=== PATIENT | female | born 1975 | race Caucasian/White ===

== ENCOUNTER 2018-03-13 17:14 | Emergency (ER) | payer OTHER ==
[~2018-03-13] VITALS: Ht 160 cm; Wt 111.6 kg
[2018-03-13] MEDS ORDERED: COZAAR 50 MG TA50 M2 PO (17:32)
[2018-03-13] MEDS ORDERED: ZOLOFT50 M1 PO (17:32)
[2018-03-13] MEDS ORDERED: METFORMIN HCL500 MG PO (17:32)
[2018-03-13] MEDS ORDERED: HYDROCHLOROTH12.5 M1 PO (17:32)
[2018-03-13 17:40] LABS: HEMATOCRIT 41.1 % (37.0-47.0); HEMOGLOBIN 14.1 gm/dL (12.0-15.0); MCH 28.8 pg (26.0-34.0); MCHC 34.4 g/dL (28.0-37.0); MCV 83.9 fL (80.0-100.0); MPV 8.1 fl. (7.2-11.1); NUCLEATED RBCS 0 /100WBC; PLATELET COUNT* 253 thou/uL (150-400); RDW-CV 14.3 % (10.5-14.5); WBC 14.3 thou/uL (4.0-11.0)
[2018-03-13 17:48] LABS: ANION GAP 11 mmol/L (7-16); BUN 9 mg/dL (7-18); CALCIUM 9.4 mg/dL (8.5-10.1); CHLORIDE 97 mmol/L (98-107); CO2 28 mmol/L (21-32); CREATININE 0.7 mg/dL (0.6-1.3); GLUCOSE 327 mg/dL (70-99); POTASSIUM 3.7 mmol/L (3.5-5.1); SODIUM 136 mmol/L (136-145)
[2018-03-13 17:55] LABS: ALBUMIN 3.7 g/dL (3.4-5.0); ALKALINE PHOSPHATASE 112 U/L (46-116); LIPASE 116 U/L (73-393); SGOT 63 U/L (15-37); SGPT 82 U/L (30-65); TOTAL BILIRUBIN 0.8 mg/dL (<0.1-1.0); TOTAL PROTEIN 7.5 g/dL (6.4-8.2); TROPONIN-I LEVEL <0.06 ng/mL (<0.06)
[2018-03-13 18:11] LABS: ABSOLUTE BASOPHILS 0.1 thou/uL (0.0-0.2); ABSOLUTE EOSINOPHILS 0.4 thou/uL (0.0-0.7); ABSOLUTE LYMPHOCYTES 3.9 thou/uL (0.8-5.3); ABSOLUTE MONOCYTES 0.9 thou/uL (0.0-1.2); ATYPICAL LYMPHS 6 %; PLATELET ESTIMATE ADEQUATE
[2018-03-13] MEDS ORDERED: GLUCOTROL5 MG PO (18:30)
[2018-03-13 18:42] LABS: URINE BILIRUBIN NEGATIVE (Negative); URINE BLOOD NEGATIVE (Negative); URINE CLARITY CLEAR; URINE COLOR YELLOW; URINE GLUCOSE-RANDOM 2+ (Negative); URINE KETONES NEGATIVE (Negative); URINE LEUKOCYTES-REFLEX NEGATIVE (Negative); URINE NITRITE-REFLEX NEGATIVE (Negative); URINE PROTEIN NEGATIVE (Negative); URINE SPECIFIC GRAVITY 1.025 (1.005-1.030); URINE UROBILINOGEN 0.2 E.U./dl (0.2-1.0)
[2018-03-13 19:07] VITALS: BP 124/76
--- NOTE | 2018-03-14 11:06 | EKG ---
[place] [address] ELECTROCARDIOGRAM REPORT Name: CELENA ALEMAN Room: [facility]#: [id number] Admission: 03/13/18 Attend Phys: Discharge: 03/13/18 Date of : 71 Report #: [id number] THIS REPORT FOR: //name// [facility] ED Test Date: 2018-03-13 Test Time: 17:35:22 Pat Name: CELENA ALEMAN Department: Room: Gender: F Painting Machine Operator: Sherri GARCIA : 1975 Requested By: Faustino Morgan Order Number: [id number] MD: Gibran Gage Measurements Intervals [place] Rate: 87 P: 37 W[place]: 160 QRS: -28 QRSD: 93 T: -10 QT: 383 QTc: 461 Interpretive Statements Sinus rhythm Left ventricular hypertrophy late transition left axis Borderline T abnormalities, inferior leads No previous ECG available for comparison Electronically Signed On 03-14-2018 11:06:34 CDT by Gibran Gage [email or web address] <ELECTRONICALLY SIGNED> By: Gibran Gage MD, [facility] 03/14/18 1106 D: [id number] Gibran Gage MD, FACC /EPI
== END 2018-03-13 19:08 | disposition home or self-care (01) ==
LOC: M.ERS 17:14
PROVIDERS: Emergency Medicine
DX: E11.65 Type 2 diabetes mellitus with hyperglycemia (principal); I10 Essential (primary) hypertension; F32.9 Major depressive disorder, single episode, unspecified; F41.9 Anxiety disorder, unspecified; Z90.89 Acquired absence of other organs; Z88.6 Allergy status to analgesic agent

== ENCOUNTER → 2018-06-18 | Outpatient (CLI) | payer OTHER ==
[~2018-06-18] MED LIST: COZAAR 50 MG TA50 M2 PO; GLUCOTROL5 MG PO; HYDROCHLOROTH12.5 M1 PO; METFORMIN HCL500 MG PO; ZOLOFT50 M1 PO
== END ==
LOC: M.CT 08:00
DX: K42.9 Umbilical hernia without obstruction or gangrene (principal); N83.202 Unspecified ovarian cyst, left side; I10 Essential (primary) hypertension; E11.9 Type 2 diabetes mellitus without complications; K76.0 Fatty (change of) liver, not elsewhere classified; F41.9 Anxiety disorder, unspecified; F32.9 Major depressive disorder, single episode, unspecified

== ENCOUNTER → 2018-06-26 | Outpatient (CLI) | payer OTHER | LOC: M.ULTRA 08:00 | DX: N83.202 Unspecified ovarian cyst, left side (principal); D25.9 Leiomyoma of uterus, unspecified ==

== ENCOUNTER 2019-07-17 18:28 | Emergency (ER) | payer BC ==
[~2019-07-17] VITALS: Ht 157.5 cm; Wt 108.9 kg
[2019-07-17] MEDS ORDERED: XANAX 0.25 MG0.25 MG PO (18:35)
[2019-07-17] MEDS ORDERED: PENICILLIN VK500 MG PO (18:47)
[2019-07-17 19:19] VITALS: BP 168/94
== END 2019-07-17 19:19 | disposition home or self-care (01) ==
LOC: M.ERS 18:28
DX: S02.5XXA Fracture of tooth (traumatic), initial encounter for closed fracture (principal); I10 Essential (primary) hypertension; F41.9 Anxiety disorder, unspecified; F32.9 Major depressive disorder, single episode, unspecified; E11.9 Type 2 diabetes mellitus without complications; X58.XXXA Exposure to other specified factors, initial encounter; Y93.89 Activity, other specified; Y92.89 Other specified places as the place of occurrence of the external cause; Y99.8 Other external cause status

== ENCOUNTER → 2020-03-04 | Outpatient (CLI) | payer BC ==
[~2020-03-04] MED LIST changes: +PENICILLIN VK500 MG PO; +XANAX 0.25 MG0.25 MG PO
== END ==
LOC: M.LAB 09:14
DX: Z20.818 Contact with and (suspected) exposure to other bacterial communicable diseases (principal); R68.89 Other general symptoms and signs

== ENCOUNTER 2020-06-23 08:38 | Emergency (ER) | payer OTHER, BC ==
[~2020-06-23] VITALS: Ht 157.5 cm; Wt 120.2 kg
[2020-06-23] MEDS ORDERED: CYCLOBENZAPRINE5 MG PO (10:53)
[2020-06-23] MEDS ORDERED: MELOXICAM15 MG PO (10:53)
[2020-06-23 11:00] VITALS: BP 150/75
== END 2020-06-23 11:00 | disposition home or self-care (01) ==
LOC: M.ERS 08:38
DX: S16.1XXA Strain of muscle, fascia and tendon at neck level, initial encounter (principal); E11.9 Type 2 diabetes mellitus without complications; I10 Essential (primary) hypertension; Z88.6 Allergy status to analgesic agent; V49.49XA Driver injured in collision with other motor vehicles in traffic accident, initial encounter; Y93.89 Activity, other specified; Y92.89 Other specified places as the place of occurrence of the external cause; Y99.8 Other external cause status

== ENCOUNTER 2020-09-01 18:48 | Emergency (ER) | payer BC ==
[~2020-09-01] VITALS: Ht 160 cm; Wt 117.9 kg
[~2020-09-01 18:48] MED LIST changes: +CYCLOBENZAPRINE5 MG PO; +MELOXICAM15 MG PO
[2020-09-01] MEDS ORDERED: CIPRO500 MG PO (20:25)
[2020-09-01] MEDS ORDERED: NORCO 5-325 TA1 EAC2 PO (20:32)
[2020-09-01 20:37] VITALS: BP 140/96
== END 2020-09-01 20:38 | disposition home or self-care (01) ==
LOC: M.ERS 18:48
DX: S91.332A Puncture wound without foreign body, left foot, initial encounter (principal); R11.2 Nausea with vomiting, unspecified; E11.9 Type 2 diabetes mellitus without complications; I10 Essential (primary) hypertension; Z88.6 Allergy status to analgesic agent; W22.8XXA Striking against or struck by other objects, initial encounter; Y93.89 Activity, other specified; Y92.89 Other specified places as the place of occurrence of the external cause; Y99.8 Other external cause status

== ENCOUNTER → 2021-03-05 | Outpatient (CLI) | payer BC ==
[~2021-03-05] MED LIST changes: +CIPRO500 MG PO; +NORCO 5-325 TA1 EAC2 PO
== END ==
LOC: M.ULTRA 08:56
PROVIDERS: ATTEND Family Medicine
DX: K76.0 Fatty (change of) liver, not elsewhere classified (principal)